=== PATIENT | female | born 1990 | race Asian ===

== ENCOUNTER 2022-12-19 11:49 | Outpatient (CLI) | payer BC | END 2022-12-19 11:50 | disposition home or self-care (01) | LOC: SCSRAD 11:49 | PROVIDERS: ATTEND Internal Medicine Rheumatology | DX: M46.1 Sacroiliitis, not elsewhere classified (principal); M53.87 Other specified dorsopathies, lumbosacral region | CPT/HCPCS: 72202 ==

== ENCOUNTER 2025-04-03 13:59 | Outpatient (CLI) | payer BC | END 2025-04-03 14:00 | disposition home or self-care (01) | LOC: SCSRAD 13:59 | PROVIDERS: ATTEND Family Medicine | DX: R06.02 Shortness of breath (principal) | CPT/HCPCS: 71046 ==